=== PATIENT | female | born 1980 | race Caucasian/White ===

== ENCOUNTER 2017-12-02 23:28 | Emergency (ER) | payer BC ==
[~2017-12-02] VITALS: Ht 165.1 cm; Wt 103.1 kg
[2017-12-03] MEDS ORDERED: BENADRYL50 MG PO (01:35)
[2017-12-03] MEDS ORDERED: PREDNISONE20 MG PO (01:35)
[2017-12-03 01:57] VITALS: BP 150/90
== END 2017-12-03 01:58 | disposition home or self-care (01) ==
LOC: EME 23:28
DX: L25.9 Unspecified contact dermatitis, unspecified cause (principal); I10 Essential (primary) hypertension; F32.9 Major depressive disorder, single episode, unspecified; Z91.040 Latex allergy status
CPT/HCPCS: 99281; 99284; J1200; J2930; J7512